=== PATIENT | female | born 1990 | race Caucasian/White ===

== ENCOUNTER 2018-09-28 01:28 | Emergency (ER) | payer OTHER ==
[~2018-09-28] VITALS: Ht 165.1 cm; Wt 56.7 kg
[2018-09-28] MEDS ORDERED: SEIZURE MEDS (01:38)
[2018-09-28] MEDS ORDERED: CELEXA10 MG PO (01:38)
[2018-09-28 01:50] LABS: ABSOLUTE MONOCYTES 0.5 thou/uL (0.0-1.2); ABSOLUTE NEUTROPHILS 5.3 thou/uL (1.6-8.1); BASOPHILS 0.3 %; EOSINOPHILS 0.4 %; HEMATOCRIT 38.9 % (37.0-47.0); LYMPHOCYTES 25.1 %; MCH 30.5 pg (26.0-34.0); MCHC 33.3 g/dL (28.0-37.0); MCV 91.5 fL (80.0-100.0); MONOCYTES 6.2 %; MPV 7.8 fl. (7.2-11.1); NUCLEATED RBCS 0 /100WBC; PLATELET COUNT* 168 thou/uL (150-400); RBC 4.25 mil/uL (4.20-5.00); RDW-CV 14.7 % (10.5-14.5); WBC 7.8 thou/uL (4.0-11.0)
[2018-09-28 02:16] LABS: APTT 24.5 Seconds (25.0-31.3); INR 1.1; PROTIME 11.1 Seconds (9.20-11.50)
[2018-09-28 02:17] LABS: ALBUMIN 3.6 g/dL (3.4-5.0); CALCIUM 8.7 mg/dL (8.5-10.1); CREATININE 0.9 mg/dL (0.6-1.3); POTASSIUM 3.7 mmol/L (3.5-5.1); TOTAL BILIRUBIN 0.9 mg/dL (<0.1-1.0); TOTAL PROTEIN 6.7 g/dL (6.4-8.2)
[2018-09-28 02:46] LABS: URINE BILIRUBIN NEGATIVE (Negative); URINE BLOOD 1+ (Negative); URINE CLARITY CLEAR; URINE COLOR YELLOW; URINE GLUCOSE-RANDOM NEGATIVE (Negative); URINE KETONES 1+ (Negative); URINE LEUKOCYTES-REFLEX NEGATIVE (Negative); URINE NITRITE-REFLEX NEGATIVE (Negative); URINE PROTEIN 1+ (Negative); URINE SPECIFIC GRAVITY >= 1.030 (1.005-1.030); URINE UROBILINOGEN 0.2 E.U./dl (0.2-1.0)
[2018-09-28 02:57] LABS: SQUAMOUS 4-10 Moderate /LPF (0-3)
[2018-09-28 02:58] LABS: CRYSTALS None Seen /LPF (None Seen); HYALINE CASTS 0-3 Few /LPF (None Seen); MUCUS 4-6 Moderate strn/LPF (None Seen); URINE RBC 0-2 Rare /HPF (0-2); URINE WBC-REFLEX 0-5 Rare /HPF (0-5)
[2018-09-28 03:10] VITALS: BP 106/59
--- NOTE | 2018-09-28 10:03 | EKG ---
[place] [address] ELECTROCARDIOGRAM REPORT Name: MICHELET AMADOR Room: [facility]#: [id number] Admission: 09/28/18 Attend Phys: Discharge: 09/28/18 Date of : [birth year] Report #: [id number] THIS REPORT FOR: //name// [facility] ED Test Date: 2018-09-28 Test Time: 01:54:06 Pat Name: MICHELET AMADOR Department: Room: Gender: F [employer] Estate [employer] Agent: NIELS : 1990 Requested By: Kobi Higgins Order Number: [id number] MD: Ariel Gee Measurements Intervals [place] Rate: 70 P: 68 IA: 173 QRS: 86 QRSD: 89 T: 47 QT: 407 QTc: 440 Interpretive Statements Sinus rhythm RSR' in V1 or V2, right VCD or RVH No previous ECG available for comparison Electronically Signed On 09-28-2018 10:03:21 CDT by Ariel Gee [email or web address] <ELECTRONICALLY SIGNED> By: Ariel Gee MD, [facility] 09/28/18 [id number] [id number] Ariel Gee MD, FACC /EPI
== END 2018-09-28 03:07 | disposition home or self-care (01) ==
LOC: M.ERS 01:28
PROVIDERS: Family Medicine
DX: S00.83XA Contusion of other part of head, initial encounter (principal); R55 Syncope and collapse; R56.9 Unspecified convulsions; G43.909 Migraine, unspecified, not intractable, without status migrainosus; Z88.8 Allergy status to other drugs, medicaments and biological substances; Z79.899 Other long term (current) drug therapy; W18.39XA Other fall on same level, initial encounter; Y93.89 Activity, other specified; Y92.89 Other specified places as the place of occurrence of the external cause; Y99.8 Other external cause status